=== PATIENT | male | born 1995 | race African-American/Black ===

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

== ENCOUNTER 2019-01-23 18:36 | Emergency (ER) | payer SELFPAY ==
[~2019-01-23] VITALS: Ht 172.7 cm; Wt 68.2 kg
[2019-01-23 18:46] VITALS: BP 150/83; TEMP 98.3
[2019-01-23 19:52] LABS: COLLECTION METHOD CLEAN CATCH
[2019-01-23] MEDS ORDERED: VALTREX1 GM PO (20:14)
[2019-01-23 20:23] LABS: AMORPHOUS CRYSTAL Present /uL; PH 8 (5-8); SQUAMOUS EPITHELIAL 0-2 /hpf; URINE APPEARANCE Cloudy; URINE BACTERIA None Seen /hpf; URINE BILIRUBIN Negative (NEGATIVE); URINE BLOOD Negative (NEGATIVE); URINE COLOR Yellow; URINE GLUCOSE Negative (NEGATIVE); URINE KETONE Negative (NEGATIVE); URINE LEUKOCYTE ESTERASE Negative (NEGATIVE); URINE NITRATE Negative (NEGATIVE); URINE PROTEIN(semi-quant) Negative (NEGATIVE); URINE UROBILINOGEN >=4.0 mg/dL (NEGATIVE)
[2019-01-23 20:35] VITALS: PULSE 66
[2019-01-23 23:03] LABS: HIV 1/2 Antibodies Non-Reactive; HIV-1p24 Antigen Non-Reactive
== END 2019-01-23 20:35 | disposition home or self-care (01) ==
LOC: COL.ER 18:36
PROVIDERS: Physician Assistant
DX: N50.9 Disorder of male genital organs, unspecified (principal)

== ENCOUNTER 2019-08-15 06:55 | Emergency (ER) | payer SELFPAY ==
[~2019-08-15] VITALS: Ht 172.7 cm; Wt 71.8 kg
[~2019-08-15 06:55] MED LIST changes: +VALTREX1 GM PO
[2019-08-15 06:59] VITALS: BP 130/78; PULSE 98; TEMP 99
[2019-08-15 07:39] LABS: STREP SCREEN POSITIVE
== END 2019-08-15 09:10 | disposition home or self-care (01) ==
LOC: COL.ER 06:55
PROVIDERS: Emergency Medicine
DX: J03.90 Acute tonsillitis, unspecified (principal)
CPT/HCPCS: J0561; J1100

== ENCOUNTER 2019-09-11 22:10 | Emergency (ER) | payer SELFPAY ==
[~2019-09-11] VITALS: Ht 172.7 cm; Wt 70.5 kg
[2019-09-11 22:44] LABS: STREP SCREEN POSITIVE
[2019-09-11] MEDS ORDERED: MAGIC MOUTH PO (22:48)
[2019-09-11] MEDS ORDERED: AMOXICILLIN 8751 TAB PO (22:48)
[2019-09-11 23:05] VITALS: BP 132/76; PULSE 73; TEMP 98.4
== END 2019-09-11 23:06 | disposition home or self-care (01) ==
LOC: COL.ER 22:10
PROVIDERS: Emergency Medicine
DX: J02.0 Streptococcal pharyngitis (principal); F17.210 Nicotine dependence, cigarettes, uncomplicated
CPT/HCPCS: J8540

== ENCOUNTER 2021-01-30 08:41 | Emergency (ER) | payer SELFPAY ==
[~2021-01-30] VITALS: Ht 172.7 cm; Wt 75.0 kg
[~2021-01-30 08:41] MED LIST changes: +AMOXICILLIN 8751 TAB PO; +MAGIC MOUTH PO
[2021-01-30 08:50] VITALS: TEMP 98.3
[2021-01-30 09:47] LABS: BASO % 0.3 % (0.0-2.0); EOS # 0.1 (0.0-0.7); EOS % 2.4 % (0-4.0); GRAN # 3.1 (1.4-6.5); GRAN % 54.4 % (42.2-75.2); HEMATOCRIT 42.1 % (42.0-52.0); HEMOGLOBIN 14.2 g/dl (13.5-18.0); LYMPH # 2.1 (1.2-3.4); LYMPH % 36.8 % (20.0-51.0); MEAN CELL VOLUME 92 fl (80.0-100.0); MEAN CORPUSCULAR HEMOGLOBIN 31 pg (27.0-31.0); MEAN CORPUSCULAR HGB CONC 34 g/dl (33.0-37.0); MEAN PLATELET VOLUME 10.7 fl (7.4-10.4); MONO # 0.3 (0.1-0.6); MONO % 5.8 % (1.7-9.3); PLATELET COUNT 183 K/mm3 (130-400); RED BLOOD COUNT 4.58 M/mm3 (4.20-5.60); REDCELL DISTRIBUTION WIDTH-CV 11.3 % (11.5-14.5)
[2021-01-30 10:01] LABS: CALCIUM 9.6 mg/dL (8.4-10.2); CREATININE, serum 0.9 (0.66-1.25); POTASSIUM 3.7 mmol/L (3.4-5.0)
[2021-01-30 10:15] LABS: C-REACTIVE PROTEIN 0.6 mg/dL (0.0-0.9)
[2021-01-30 10:21] LABS: ERYTHROCYTE SEDIMENTATION RATE 1 mm/hr (0-15)
[2021-01-30] MEDS ORDERED: CLEOCIN HCL300 MG PO (10:23)
[2021-01-30 10:45] VITALS: BP 104/64; PULSE 67
== END 2021-01-30 10:45 | disposition home or self-care (01) ==
LOC: COL.ER 08:41
PROVIDERS: Emergency Medicine
DX: L08.89 Other specified local infections of the skin and subcutaneous tissue (principal); F17.210 Nicotine dependence, cigarettes, uncomplicated

== ENCOUNTER 2022-02-21 08:47 | Emergency (ER) | payer SELFPAY ==
[~2022-02-21] VITALS: Ht 172.7 cm; Wt 72.7 kg
[~2022-02-21 08:47] MED LIST changes: +CLEOCIN HCL300 MG PO
[2022-02-21 08:54] VITALS: BP 127/79; TEMP 98.2
[2022-02-21 10:18] VITALS: PULSE 79
== END 2022-02-21 10:18 | disposition home or self-care (01) ==
LOC: COL.ER 08:47
DX: S99.921A Unspecified injury of right foot, initial encounter (principal); Z28.310 Unvaccinated for COVID-19; W20.8XXA Other cause of strike by thrown, projected or falling object, initial encounter

== ENCOUNTER 2022-03-07 14:48 | Emergency (ER) | payer SELFPAY ==
[~2022-03-07] VITALS: Ht 172.7 cm; Wt 70.5 kg
[2022-03-07 16:12] LABS: COLLECTION METHOD CLEAN CATCH
[2022-03-07 16:16] LABS: BASO % 0.4 % (0.0-2.0); EOS # 0.2 K/mm3 (0.0-0.7); EOS % 2.2 % (0.0-4.0); GRAN # 5.8 K/mm3 (1.4-6.5); GRAN % 73.8 % (42.2-75.2); HEMATOCRIT 41.7 % (42.0-52.0); LYMPH # 1.3 K/mm3 (1.2-3.4); LYMPH % 15.9 % (20.0-51.0); MEAN CELL VOLUME 94 fl (80.0-100.0); MEAN CORPUSCULAR HEMOGLOBIN 32 pg (27-31); MEAN CORPUSCULAR HGB CONC 34 g/dl (33.0-37.0); MEAN PLATELET VOLUME 10.4 fl (7.4-10.4); MONO # 0.6 K/mm3 (0.1-0.6); MONO % 7.6 % (1.7-9.3); PLATELET COUNT 161 K/mm3 (130-400); RED BLOOD COUNT 4.44 M/mm3 (4.20-5.60); REDCELL DISTRIBUTION WIDTH-CV 11.3 % (11.5-14.5)
[2022-03-07 16:19] LABS: MUCOUS Present (NOT PRESENT); PH 5 (5-8); SQUAMOUS EPITHELIAL None Seen /hpf (0-10); URINE APPEARANCE Clear (CLEAR/HAZY); URINE BACTERIA None Seen /hpf (NONE SEEN); URINE BILIRUBIN Negative (NEGATIVE); URINE BLOOD Negative (NEGATIVE); URINE COLOR Yellow (YELLOW); URINE GLUCOSE Negative (NEGATIVE); URINE KETONE 1+ (NEGATIVE); URINE LEUKOCYTE ESTERASE Negative (NEGATIVE); URINE NITRATE Negative (NEGATIVE); URINE PROTEIN(semi-quant) Negative (NEGATIVE); URINE RBC None Seen /hpf (0-2); URINE UROBILINOGEN >=4.0 (NEGATIVE)
[2022-03-07 16:24] LABS: STREP SCREEN NEGATIVE
[2022-03-07 16:46] LABS: BILIRUBIN,TOTAL 0.5 mg/dL (0.2-1.2); CALCIUM 9.5 mg/dL (8.4-10.2); CREATININE, serum 1.03 mg/dL (0.72-1.25); TOTAL PROTEIN 7.7 gm/dL (6.2-8.1)
[2022-03-07 16:52] VITALS: TEMP 99.8
[2022-03-07 18:12] VITALS: BP 129/79; PULSE 91
== END 2022-03-07 18:12 | disposition home or self-care (01) ==
LOC: COL.ER 14:48
PROVIDERS: Nurse Practitioner Primary Care
DX: B34.9 Viral infection, unspecified (principal); Z20.822 Contact with and (suspected) exposure to COVID-19; Z28.310 Unvaccinated for COVID-19
CPT/HCPCS: J1885; J7030; Q9967